=== PATIENT | male | born 1995 | race Caucasian/White ===

== ENCOUNTER 2023-11-21 10:00 | Outpatient (CLI) | payer MEDICAID ==
--- NOTE | 2023-11-22 02:42 | Ultrasound Report ---
PROCEDURE: Abdomen Limited INDICATIONS: Right quadrant pain TECHNIQUE: Real-time focused scanning was performed of the abdomen, with image documentation. COMPARISONS: None. FINDINGS: Liver: Liver is normal in size and mildly heterogeneous in echotexture. Gallbladder: No gallstones, sludge, wall thickening or pericholecystic edema. Biliary ducts: Intrahepatic bile ducts are non-dilated. Extrahepatic bile duct caliber measures 3 m m. Normal is 6-7 mm or less in diameter, or 10 mm or less post-cholecystectomy. Pancreas: Visualized portions of the pancreas are sonographically normal. Right kidney: Normal in size and echotexture. Right kidney measures 10.7 cm long. No hydronephrosis or nephrolithiasis. No solid masses. No complex renal cystic lesions which require follow-up. IVC: Intrahepatic inferior vena cava is patent. Miscellaneous: No free abdominal fluid. IMPRESSION: Unremarkable right upper quadrant abdominal ultrasound. No gallstone disease. Reviewed by: Abdoul Trejo MD on 11/22/2023 2:40 AM PDT Approved by: Abdoul rTejo MD on 11/22/2023 2:40 AM PDT Station ID: [id number]
== END 2023-11-21 23:59 | disposition home or self-care (01) ==
LOC: DI 10:00
PROVIDERS: ATTEND Physician Assistant
DX: R10.11 Right upper quadrant pain (principal); R10.31 Right lower quadrant pain